=== PATIENT | female | born 1990 | race Caucasian/White ===

== ENCOUNTER → 2020-11-20 | Outpatient (CLI) | payer OTHER | LOC: COL.RAD 09:03 | DX: G93.5 Compression of brain (principal) ==

== ENCOUNTER 2021-04-08 08:17 | Emergency (ER) | payer OTHER ==
[~2021-04-08] VITALS: Ht 165.1 cm; Wt 61.4 kg
[2021-04-08 08:24] VITALS: BP 125/91; TEMP 98.1
[2021-04-08] MEDS ORDERED: NORCO 325 MG-51 TAB PO (10:39)
[2021-04-08] MEDS ORDERED: ROBAXIN 75750 MG/TAB PO (10:39)
[2021-04-08 10:50] VITALS: PULSE 61
== END 2021-04-08 10:50 | disposition home or self-care (01) ==
LOC: COL.ER 08:17
DX: M54.50 Low back pain, unspecified (principal)
CPT/HCPCS: J1885